=== PATIENT | male | born 1975 | race Caucasian/White ===

== ENCOUNTER 2017-03-17 10:28 | Emergency (ER) | payer SELFPAY ==
[~2017-03-17] VITALS: Ht 165.1 cm; Wt 60.0 kg
[2017-03-17] MEDS ORDERED: advil (10:40)
[2017-03-17] MEDS ORDERED: KETOROLAC 60MG/2ML VIAL IM STA (15:22)
[2017-03-17 16:00] LABS: GLUCOSE URINE NEGATIVE (NEGATIVE); KETONES URINE TRACE (NEGATIVE); LEUKOCYTE ESTERASE URINE NEGATIVE (NEGATIVE); NITRITE URINE NEGATIVE (NEGATIVE); OCCULT BLOOD URINE NEGATIVE (NEGATIVE); PH URINE 6.5 (4.5-8.0); PROTEIN URINE NEGATIVE (NEGATIVE); SPECIFIC GRAVITY URINE 1.014 (1.005-1.030); UROBILINOGEN URINE 0.2 E.U./dL (0.2-1.0)
[2017-03-17 16:10] LABS: CLARITY URINE CLEAR (CLEAR); COLOR URINE YELLOW (YELLOW)
[2017-03-17 16:25] LABS: BASOPHILS % 0.5 % (0.0-2.0); EOSINOPHILS % 0.2 % (0.0-5.0); HEMATOCRIT. 41.1 % (42.0-52.0); HEMOGLOBIN. 14.5 g/dL (14.0-18.0); LYMPHOCYTES % 14.9 % (20.0-50.0); MEAN CORPUSCULAR HEMOGLOBIN 31.8 pg (28.0-32.0); MEAN CORPUSCULAR VOLUME 90.2 fL (80.0-94.0); MEAN PLATELET VOLUME 10.1 fl (7.4-10.4); MONOCYTES % 4.3 % (2.0-8.0); NEUTROPHILS % 80.1 % (40.0-76.0); PLATELET 136 x1000/uL (130-400); RED BLOOD CELL COUNT 4.56 mill/uL (4.7-6.1); RED CELL DISTRIBUTION WIDTH 13.1 % (11.6-14.6)
[2017-03-17 16:29] LABS: CHLORIDE 104 mEq/L (98-107)
[2017-03-17 16:34] LABS: CARBON DIOXIDE 29 mEq/L (21-32)
[2017-03-17 18:06] VITALS: BP 122/80
== END 2017-03-17 18:14 | disposition home or self-care (01) ==
LOC: ER 15:19
DX: R51 Headache (principal); R53.1 Weakness
CPT/HCPCS: 36415; 80053; 81003; 85025; 96372; 99284; J1885